=== PATIENT | female | born 1965 | race Caucasian/White ===

== ENCOUNTER 2023-10-17 14:10 | Emergency (ER) | payer OTHER ==
[~2023-10-17] VITALS: Ht 170.2 cm; Wt 59.3 kg
[2023-10-17 15:39] LABS: Chloride 107 mmol/L (98-107); Potassium 4.2 mmol/L (3.5-5.1); Sodium 138 mmol/L (136-145)
[2023-10-17 15:40] LABS: Anion Gap 6 (5-15); Carbon Dioxide 25 mmol/L (20-30)
[2023-10-17 15:41] LABS: Calcium 9.5 mg/dL (8.7-10.4)
[2023-10-17 15:46] LABS: BUN/Creatinine Ratio 9.1 (10.0-20.0); Blood Urea Nitrogen 6 mg/dL (9-23); Glucose 81 mg/dL (74-106)
[2023-10-17 16:27] VITALS: BP 139/84; PULSE 79; RESP 16; TEMP 97.9; O2SAT 97
[2023-10-17] MEDS ORDERED: IBUP-1456 PO (16:36)
[2023-10-17] MEDS ORDERED: CYCL-839 PO (16:36)
== END 2023-10-17 16:37 | disposition home or self-care (01) ==
LOC: ER 14:10
DX: S76.011A Strain of muscle, fascia and tendon of right hip, initial encounter (principal); S39.011A Strain of muscle, fascia and tendon of abdomen, initial encounter; W01.0XXA Fall on same level from slipping, tripping and stumbling without subsequent striking against object, initial encounter; Y93.89 Activity, other specified; Y92.89 Other specified places as the place of occurrence of the external cause; Y99.8 Other external cause status
CPT/HCPCS: 36415; 74176; 80048